=== PATIENT | male | born 1970 | race Caucasian/White ===

== ENCOUNTER 2025-04-17 12:52 | Outpatient (CLI) | payer BC | END 2025-04-17 12:53 | disposition home or self-care (01) | LOC: CSHWCC 12:52 | PROVIDERS: ATTEND Nurse Practitioner Family | DX: S31.000D Unspecified open wound of lower back and pelvis without penetration into retroperitoneum, subsequent encounter (principal); E11.622 Type 2 diabetes mellitus with other skin ulcer; L98.499 Non-pressure chronic ulcer of skin of other sites with unspecified severity | CPT/HCPCS: 11042; 99212; G0463 ==

== ENCOUNTER 2025-05-26 09:22 | Outpatient (CLI) | payer BC | END 2025-05-26 09:23 | disposition home or self-care (01) | LOC: CSHWCC 09:22 | PROVIDERS: ATTEND Nurse Practitioner Family | DX: S31.000D Unspecified open wound of lower back and pelvis without penetration into retroperitoneum, subsequent encounter (principal); E11.622 Type 2 diabetes mellitus with other skin ulcer; L98.499 Non-pressure chronic ulcer of skin of other sites with unspecified severity | CPT/HCPCS: 11042; 97605 ==

== ENCOUNTER 2025-06-02 09:24 | Outpatient (CLI) | payer BC | END 2025-06-02 09:25 | disposition home or self-care (01) | LOC: CSHWCC 09:24 | PROVIDERS: ATTEND Nurse Practitioner Family | DX: S31.000D Unspecified open wound of lower back and pelvis without penetration into retroperitoneum, subsequent encounter (principal); E11.622 Type 2 diabetes mellitus with other skin ulcer; L98.499 Non-pressure chronic ulcer of skin of other sites with unspecified severity | CPT/HCPCS: 11042; 99213; G0463 ==

== ENCOUNTER 2025-06-15 11:32 | Outpatient (CLI) | payer BC | END 2025-06-15 11:33 | disposition home or self-care (01) | LOC: CSHWCC 11:32 | PROVIDERS: ATTEND Nurse Practitioner Family | DX: S31.000D Unspecified open wound of lower back and pelvis without penetration into retroperitoneum, subsequent encounter (principal); E11.622 Type 2 diabetes mellitus with other skin ulcer; L98.499 Non-pressure chronic ulcer of skin of other sites with unspecified severity | CPT/HCPCS: 11042 ==